=== PATIENT | female | born 1980 | race Caucasian/White ===

== ENCOUNTER 2017-06-02 12:34 | Emergency (ER) | payer BC, OTHER ==
[2017-06-02] MEDS ORDERED: Sodium Chloride 0.9% 10 ML Syringe FLUSH PRN (12:58)
[2017-06-02] MEDS ORDERED: Ketorolac 30 MG/ML SDV IVPUSH ONE (12:58)
[2017-06-02] MEDS ORDERED: Sodium Chloride 0.9% 2.5 ML Syringe FLUSH PRN (12:58)
[2017-06-02] MEDS ORDERED: Sodium Chloride 0.9% 1,000 ML IV ONE (12:59)
--- NOTE | 2017-06-02 13:01 | EDM.PDOC ---
ED HPI GENERAL MEDICAL PROBLEM - General Chief Complaint: Back Pain or Injury Stated Complaint: LOWER BACK PAIN Time Seen by Provider: 06/02/17 12:59 Source of Information: Reports: Patient, RN Notes Reviewed History Limitations: Reports: No Limitations - History of Present Illness INITIAL COMMENTS - FREE TEXT/NARRATIVE: HISTORY AND PHYSICAL: []36-year-old female presenting with lower back pain on the left started about one hour previously while she was sitting at her desk and typing History of Present Illness: []Patient denies any injury Denies any illnesses no cough, fever sore throat No dysuria Review of Systems: As per history of present illness and below otherwise all systems reviewed and negative. Past medical history: As per history of present illness and as reviewed below otherwise noncontributory. Surgical history: As per history of present illness and as reviewed below otherwise noncontributory. Social history: No reported history of drug or alcohol abuse. Family history: As per history of present illness and as reviewed below otherwise noncontributory. Physical exam: Alert and oriented female who answers questions appropriately has done a little bit difficulty standing from sitting position. Nontoxic in appearance. HEENT: Atraumatic, normocehpalic, pupils reactive, negative for conjunctival pallor or scleral icterus, mucous membranes moist, throat clear, neck supple, nontender, trachea midline. Lungs: Clear to auscultation, breath sounds equal bilaterally, chest non tender. Heart: S1S2, regular, negative for clicks, rubs, or JVD. Abdomen: Soft, nondistended, nontender. Negative for masses or hepatossplenmegaly. Positive for costovertebral tenderness on left. Pelvis: Stable nontender. Genitourinary: Deferred. Rectal: Deferred Extremities: Atraumatic, negative for cords or calf pain. Neurovascular unremarkable. Neuro: Awake, alert, oriented. Cranial nerves II through XII unremarkable. Cerebellum unremarkable. Motor and sensory unremarkable throughout. Exam nonfocal. Diagnostics: [CBC CMP quantitative hCG and UA CT abdomen pelvis without ] Therapeutics: [1 L normal saline Toradol IV hydrocodone/APAP 5/325mg 1 po] Impression: [Renal stone] Plan: []Discharged home Prescriptions will be electronically sent to your pharmacy of choice Flomax Mariajoseocchuy See your echo provider in 2-3 days for reevaluation and referral to urology if needed Definitive disposition and diagnosis as appropriate pending reevaluation and review of above. 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: Reports: IV/IO, Other (see below) Other 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: toradol IV left lower back, lower abdomen Pain Score (Numeric/FACES): 8 - Related Data Allergies Allergy/AdvReac Type Severity Reaction Status Date / Time morphine Allergy Severe Lethargy Verified 06/02/17 12:47 Home Meds: Home Meds Escitalopram [Lexapro] 1 tab PO DAILY 05/23/14 [History] Levothyroxine [Synthroid] 1 tab PO ASDIRECTED 05/23/14 [History] Levothyroxine [Synthroid] 1 tab PO ASDIRECTED 05/23/14 [History] Multivitamin [Multi-Vitamin Daily] 1 tab PO DAILY 05/23/14 [History] Amoxicillin PO BID 06/02/17 [History] Tamsulosin [Flomax] 0.4 mg PO ONETIME #30 cap.er 06/02/17 [Rx] Past Medical History Endocrine/Metabolic History: Reports: Hypothyroidism - Infectious Disease History Infectious Disease History: Reports: Chicken Pox, Measles, Mumps Social & Family History - Family History Family Medical History: Noncontributory - Tobacco Use Smoking Status *Q: Current Every Day Smoker Years of Tobacco use: 20 Packs/Tins Daily: 0.5 Second Hand Smoke Exposure: Yes - Caffeine Use Caffeine Use: Reports: None - Alcohol Use Days Per Week of Alcohol Use: 0 Number of Drinks Per Day: 0 Total Drinks Per Week: 0 - Recreational Drug Use Recreational Drug Use: No Drug Use in Last 12 Months: No ED ROS GENERAL - Review of Systems Review Of Systems: ROS reveals no pertinent complaints other than HPI. ED EXAM,LOWER BACK PAIN/INJURY - Physical Exam Exam: See Below (see dictation) Course - Vital Signs Last Recorded V/S: Last Vital Signs Temp 36.7 C 06/02/17 12:43 Pulse Resp 16 06/02/17 12:43 BP 103/63 06/02/17 14:35 Pulse Ox 97 06/02/17 12:43 - Orders/Labs/Meds Orders: Active Orders 24 hr Category Date Time Status Sodium Chloride 0.9% [Saline Flush] Med 06/02/17 12:58 Active 10 ml FLUSH ASDIRECTED PRN Sodium Chloride 0.9% [Saline Flush] Med 06/02/17 12:58 Active 2.5 ml FLUSH ASDIRECTED PRN Saline Lock Insert [OM.PC] Stat Oth 06/02/17 12:58 Ordered Medication Orders Sodium Chloride (Saline Flush) 10 ml FLUSH ASDIRECTED PRN PRN Reason: Keep Vein Open Last Admin: 06/02/17 13:05 Dose: 10 ml Sodium Chloride (Saline Flush) 2.5 ml FLUSH ASDIRECTED PRN PRN Reason: Keep Vein Open Last Admin: 06/02/17 13:05 Dose: 2.5 ml Labs: Laboratory Tests 06/02/17 06/02/17 06/02/17 Range/Units 10:10 13:03 13:03 WBC 11.59 H (4.0-11.0) K/uL RBC 4.24 L (4.30-5.90) M/uL Hgb 13.5 (12.0-16.0) g/dL Hct 40.0 (36.0-46.0) % MCV 94.3 (80.0-98.0) fL MCH 31.8 (27.0-32.0) pg MCHC 33.8 (31.0-37.0) g/dL RDW Std Deviation 44.9 (28.0-62.0) fl RDW Coeff of Omer 13 (11.0-15.0) % Plt Count 271 (150-400) K/uL MPV 9.30 (7.40-12.00) fL Neut % (Auto) 72.2 (48.0-80.0) % Lymph % (Auto) 20.8 (16.0-40.0) % [place] % (Auto) 5.1 (0.0-15.0) % Eos % (Auto) 1.7 (0.0-7.0) % Baso % (Auto) 0.2 (0.0-1.5) % Neut # (Auto) 8.4 H (1.4-5.7) K/uL Lymph # (Auto) 2.4 (0.6-2.4) K/uL [place] # (Auto) 0.6 (0.0-0.8) K/uL Eos # (Auto) 0.2 (0.0-0.7) K/uL Baso # (Auto) 0.0 (0.0-0.1) K/uL Nucleated RBC % 0.0 /100WBC Nucleated RBCs # 0 K/uL Sodium 137 (136-146) mmol/L Potassium 4.3 (3.5-5.1) mmol/L Chloride 107 (98-110) mmol/L Carbon Dioxide 20 L (21-31) mmol/L BUN 13 (6.0-23.0) mg/dL Creatinine 0.8 (0.6-1.5) mg/dL Est Cr Clr Drug Dosing 96.18 mL/min Estimated GFR (MDRD) > 60.0 ml/min Glucose 111 H (60-110) mg/dL Calcium 9.9 (8.8-10.8) mg/dL Total Bilirubin 1.1 (0.1-1.5) mg/dL AST 22 (5-40) IU/L ALT 23 (8-54) IU/L Alkaline Phosphatase 61 (40-150) Total Protein 7.6 (6.0-8.0) g/dL Albumin 4.3 (3.5-5.0) g/dL Globulin 3.3 (2.0-3.5) g/dL Albumin/Globulin Ratio 1.3 (1.3-2.8) HCG, Quant < 1.2 mIU/mL Urine Color YELLOW Urine Appearance CLEAR Urine pH 6.0 (5.0-8.0) Ur Specific [place] 1.025 (1.001-1.035) Urine Protein NEGATIVE (NEGATIVE) mg/dL Urine Glucose (UA) NEGATIVE (NEGATIVE) mg/dL Urine Ketones TRACE H (NEGATIVE) mg/dL Urine Occult Blood SMALL H (NEGATIVE) Urine Nitrite NEGATIVE (NEGATIVE) Urine Bilirubin NEGATIVE (NEGATIVE) Urine Urobilinogen 0.2 (<2.0) EU/dL Ur Leukocyte Esterase NEGATIVE (NEGATIVE) Urine RBC 4-6 (0-2/HPF) Urine WBC 2-5 (0-5/HPF) Ur Epithelial Cells MODERATE (NONE-FEW) Urine Bacteria RARE (NEGATIVE) Urine Mucus LIGHT (NONE-MOD) Meds: Medications Generic Name Dose Route Start Last Admin Trade Name Freq PRN Reason Stop Dose Admin Sodium Chloride 10 ml 06/02/17 12:58 06/02/17 13:05 Saline Flush FLUSH 10 ml ASDIRECTED PRN Administration Keep Vein Open Sodium Chloride 2.5 ml 06/02/17 12:58 06/02/17 13:05 Saline Flush FLUSH 2.5 ml ASDIRECTED PRN Administration Keep Vein Open Discontinued Medications Generic Name Dose Route Start Last Admin Trade Name Jairo PRN Reason Stop Dose Admin Hydrocodone Bitart/Acetaminophen 1 tab 06/02/17 14:13 06/02/17 14:23 [place] 325-5 Mg PO 06/02/17 14:14 1 tab ONETIME ONE Administration Hydromorphone HCl 1 mg 06/02/17 15:02 06/02/17 15:11 Dilaudid IM 06/02/17 15:03 1 mg ONETIME ONE Administration Sodium Chloride 1,000 mls @ 999 mls/hr 06/02/17 12:59 06/02/17 13:04 Normal Saline IV 06/02/17 13:59 999 mls/hr STAT ONE Administration Iopamidol 100 ml 06/02/17 14:34 06/02/17 14:35 Isovue Multipack-370 (76%) IVPUSH 06/02/17 14:35 100 ml ONETIME STA Administration Ketorolac Tromethamine 30 mg 06/02/17 12:58 06/02/17 13:04 Toradol IVPUSH 06/02/17 12:59 30 mg ONETIME ONE Administration Morphine Sulfate 2 mg 06/02/17 14:11 06/02/17 15:11 Morphine IV 06/02/17 14:12 Not Given ONETIME ONE Ondansetron HCl 4 mg 06/02/17 14:11 06/02/17 14:24 Zofran IVPUSH 06/02/17 14:12 4 mg ONETIME ONE Administration Departure - Departure Time of Disposition: 15:42 Disposition: Home, Self-Care 01 Condition: Good Clinical Impression: Renal stone - Discharge Information Prescriptions: Tamsulosin [Flomax] 0.4 mg PO ONETIME #30 cap.er Referrals: PCP,None [Primary Care Provider] - Forms: ED Department Discharge Additional Instructions: The following information is given to patients seen in the emergency department who are being discharged to home. This information is to outline your options for follow-up care. We provide all patients seen in our emergency department with a follow-up referral. The need for follow-up, as well as the timing and circumstances, are variable depending upon the specifics of your emergency department visit. If you don't have a primary care physician on staff, we will provide you with a referral. We always advise you to contact your personal physician following an emergency department visit to inform them of the circumstance of the visit and for follow-up with them and/or the need for any referrals to a consulting specialist. The emergency department will also refer you to a specialist when appropriate. This referral assures that you have the opportunity for followup care with a specialist. All of these measure are taken in an effort to provide you with optimal care, which includes your followup. Under all circumstances we always encourage you to contact your private physician who remains a resource for coordinating your care. When calling for followup care, please make the office aware that this follow-up is from your recent emergency room visit. If for any reason you are refused follow-up, please contact the [facility] emergency department at and asked to speak to the emergency department charge nurse. Prescription has been written for Percocet 10 mg one 3 times daily as needed for pain #21 no refill prescription electronically sent for Flomax 0.4 mg one at the same time daily # 30 no refill Increase fluid intake Strain urine See your primary care provider in the next 2-3 days for reevaluation and reassess need for urology consult Dr. Gill TAVAREZ [facility] - Urology [address] [place] [id number] - My Orders Last 24 Hours: My Active Orders 06/02/17 12:58 Sodium Chloride 0.9% [Saline Flush] 10 ml FLUSH ASDIRECTED PRN Sodium Chloride 0.9% [Saline Flush] 2.5 ml FLUSH ASDIRECTED PRN Saline Lock Insert [OM.PC] Stat - Assessment/Plan Last 24 Hours: My Active Orders 06/02/17 12:58 Sodium Chloride 0.9% [Saline Flush] 10 ml FLUSH ASDIRECTED PRN Sodium Chloride 0.9% [Saline Flush] 2.5 ml FLUSH ASDIRECTED PRN Saline Lock Insert [OM.PC] Stat
[2017-06-02 13:36] LABS: CHLORIDE,CL 107 mmol/L (98-110); SODIUM,NA 137 mmol/L (136-146)
[2017-06-02] MEDS ORDERED: Ondansetron 4 MG/2 ML SDV IVPUSH ONE (14:11)
[2017-06-02] MEDS ORDERED: Acetaminophen/HYDROcodone 325-5 MG Tab PO ONE (14:13)
[2017-06-02] MEDS: Morphine 10 MG/ML Syringe IV ONE ×2 (14:24→15:11)
[2017-06-02] MEDS ORDERED: Iopamidol 755 MG/ML 500 ML Multipack Bottle IVPUSH STA (14:34)
[2017-06-02] MEDS ORDERED: HYDROmorphone 1 MG/ML Syringe IM ONE (15:02)
--- NOTE | 2017-06-02 15:15 | CT ---
CT of the abdomen and pelvis with contrast. HISTORY: Pain TECHNIQUE: Axial CT images were obtained of the abdomen and pelvis following administration of 100 mL of Isovue-370 in the left antecubital fossa without complication. Coronal and sagittal reconstructio ns obtained. FINDINGS: There is a tiny calcified granuloma within the left lung base. No pleural effusion. The liver, spleen, adrenal glands, and pancreas appear normal. The gallbladder appears normal. No bul ky retroperitoneal lymphadenopathy or abdominal ascites. There is a delayed left-sided nephrogram noted with mild to moderate left-sided hydronephrosis. There is a 2 to 3 mm obstructing stone within the distal left ureter. The large and small bowel are normal in caliber without evidence of obstruction. No focal pericolonic inflammation or stranding. The appendix appears normal. No bulky pelvic lymphadenopathy or free pelv ic fluid. No suspicious osseous abnormalities. IMPRESSION: 1. There is a 2 to 3 mm obstructing stone within the distal left ureter with mild to moderate proxima l hydronephrosis.
[2017-06-02 15:59] VITALS: BP 99/57
== END 2017-06-02 16:00 | disposition home or self-care (01) ==
LOC: MW.ED 12:34
DX: N13.2 Hydronephrosis with renal and ureteral calculous obstruction (principal); E03.9 Hypothyroidism, unspecified; F17.210 Nicotine dependence, cigarettes, uncomplicated; Z88.5 Allergy status to narcotic agent; Z79.899 Other long term (current) drug therapy
CPT/HCPCS: 36415; 74177; 80053; 81001; 84702; 85025; 96361; 96374; 96375; 99285; A9270; J1170; J1885; J2405; J7040; Q9967; 99283; J2270

== ENCOUNTER 2020-04-14 10:55 | Day surgery (SDC) | payer OTHER ==
[2020-04-14] MEDS ORDERED: Propofol 200 MG/20 ML SDV ONE (11:07)
[2020-04-14] MEDS ORDERED: fentaNYL 100 MCG/2 ML SDV ONE (11:07)
[2020-04-14] MEDS ORDERED: Midazolam 1 MG/ML 2 ML SDV ONE (11:07)
[2020-04-14] MEDS ORDERED: Ondansetron 4 MG/2 ML SDV ONE (11:08)
[2020-04-14] MEDS ORDERED: Dexamethasone 4 MG/ML 5 ML MDV ONE (11:08)
--- NOTE | 2020-04-14 11:40 | PCM.PREANE ---
Preanesthetic Assessment - Anesthesia/Transfusion/Family Hx Anesthesia History: Prior Anesthesia Without Reaction Other Type of Anesthesia Reaction Comment: Only problem was 'Morphine, cannot have, "I get wild, intensified pain" Family History of Anesthesia Reaction: No Transfusion History: No Prior Transfusion(s) - Review of Systems General: No Symptoms Pulmonary: No Symptoms Cardiovascular: No Symptoms Gastrointestinal: No Symptoms Neurological: No Symptoms Other: Reports: None - Physical Assessment NPO Status Date: 04/13/20 Vital Signs: Last Vital Signs Temp 97.3 F 04/14/20 11:18 Pulse 64 04/14/20 11:18 Resp 16 04/14/20 11:18 BP 86/66 L 04/14/20 11:18 Pulse Ox 100 04/14/20 11:18 Height: 5 ft 8 in Weight: 78.018 kg ASA Class: 2 Mental Status: Alert & Oriented x3 Airway Class: Mallampati = 2 Dentition: Reports: Normal Dentition ROM/Head Extension: Full Lungs: Clear to Auscultation, Normal Respiratory Effort Cardiovascular: Regular Rate, Regular Rhythm - Lab Values: Laboratory Last Values Hgb 13.3 g/dL (12.0-16.0) 04/13/20 09:33 Hct 39.9 % (36.0-46.0) 04/13/20 09:33 HCG, Qual NEGATIVE (NEG) 04/13/20 09:33 - Allergies Allergies/Adverse Reactions: Allergies Allergy/AdvReac Type Severity Reaction Status Date / Time morphine Allergy Severe Lethargy Verified 04/14/20 11:23 - Blood Blood Available: No - Anesthesia Plan Pre-Op Medication Ordered: None - Acknowledgements Anesthesia Type Planned: General Anesthesia (ga/lma) Pt an Appropriate Candidate for the Planned Anesthesia: Yes Alternatives and Risks of Anesthesia Discussed w Pt/Guardian: Yes Pt/Guardian Understands and Agrees with Anesthesia Plan: Yes Additional Comments: PMH: smoker, thyroid replacement, chronic pain syndromes - endometriosis, fibromyalgia, allergy to morphine--sedation then respiratory problems PLANB: GA/LMA PreAnesthesia Questionnaire HEENT History: Reports: Other (See Below) Other HEENT History: wears contacts Cardiovascular History: Reports: Other (See Below) Other Cardiovascular History: murmur as a child Respiratory History: Reports: None Gastrointestinal History: Reports: None Genitourinary History: Reports: Renal Calculus SOUND EFFECTS PERSON History: Reports: Musculoskeletal History: Reports: Fibromyalgia Neurological History: Reports: None Psychiatric History: Reports: None Endocrine/Metabolic History: Reports: Hypothyroidism Other Endocrine/Metabolic History: has not been taking her thyroid medication for over 2 months Hematologic History: Reports: None Immunologic History: Reports: None Oncologic (Cancer) History: Reports: None Dermatologic History: Reports: None - Infectious Disease History Infectious Disease History: Reports: Chicken Pox, Measles, Mumps - Past Surgical History Head Surgeries/Procedures: Reports: None HEENT Surgical History: Reports: None Cardiovascular Surgical History: Reports: None Respiratory Surgical History: Reports: None GI Surgical History: Reports: None Female Surgical History: Reports: Other (See Below) Other Female Surgeries/Procedures: diagnostic laparoscopy Endocrine Surgical History: Reports: None Neurological Surgical History: Reports: None Musculoskeletal Surgical History: Reports: Other (See Below) Other Musculoskeletal Surgeries/Procedures:: upper rib extraction ("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") Oncologic Surgical History: Reports: None Dermatological Surgical History: Reports: None - SUBSTANCE USE Smoking Status *Q: Current Every Day Smoker Tobacco Use Within Last Twelve Months: Cigarettes - HOME MEDS Home Medications: Home Meds Levothyroxine [Synthroid] 1 tab PO ASDIRECTED 05/23/14 [History] Levothyroxine [Synthroid] 1 tab PO ASDIRECTED 05/23/14 [History] Multivitamin [Multi-Vitamin Daily] 1 tab PO DAILY 05/23/14 [History] Cholecalciferol (Vitamin D3) [Vitamin D3] 2,000 units PO DAILY 04/12/20 [History] - CURRENT (IN HOUSE) MEDS Current Meds: Current Medications Discontinued Medications Dexamethasone (Dexamethasone) Confirm Administered Dose 20 mg .ROUTE .STK-MED ONE Stop: 04/14/20 11:09 Fentanyl (Sublimaze) Confirm Administered Dose 100 mcg .ROUTE .STK-MED ONE Stop: 04/14/20 11:08 Lidocaine HCl (Xylocaine-Mpf 1%) Confirm Administered Dose 5 ml .ROUTE .STK-MED ONE Stop: 04/14/20 11:09 Midazolam HCl (Versed 1 Mg/Ml) Confirm Administered Dose 2 mg .ROUTE .STK-MED ONE Stop: 04/14/20 11:08 Ondansetron HCl (Zofran) Confirm Administered Dose 4 mg .ROUTE .STK-MED ONE Stop: 04/14/20 11:09 Propofol (Diprivan 20 Ml) Confirm Administered Dose 200 mg .ROUTE .STK-MED ONE Stop: 04/14/20 11:08
[2020-04-14] MEDS ORDERED: ePHEDrine 50 MG/ML SDV ONE (11:44)
[2020-04-14] MEDS ORDERED: Glycopyrrolate 0.2 MG/ML SDV ONE (12:06)
[2020-04-14] MEDS ORDERED: fentaNYL 100 MCG/2 ML SDV IVPUSH PRN (12:14)
--- NOTE | 2020-04-14 12:30 | PCM.OPNOTE ---
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
--- NOTE | 2020-04-14 12:45 | PCM.POSTAN ---
POST ANESTHESIA ASSESSMENT - MENTAL STATUS Mental Status: Alert, Oriented - VITAL SIGNS Vital Signs: Last Vital Signs Temp 36.6 C 04/14/20 12:22 Pulse 104 H 04/14/20 12:42 Resp 17 04/14/20 12:42 BP 112/71 04/14/20 12:42 Pulse Ox 99 04/14/20 12:42 - RESPIRATORY Respiratory Status: Respiratory Rate WNL, Airway Patent, O2 Saturation Stable - CARDIOVASCULAR CV Status: Pulse Rate WNL, Blood Pressure Stable - GASTROINTESTINAL GI Status: No Symptoms - POST OP HYDRATION Hydration Status: Adequate & Stable
--- NOTE | 2020-04-14 12:55 | PCM48HPAN ---
Post Anesthesia Note - EVALUATION WITHIN 48HRS OF ANESTHETIC Vital Signs in Normal Range: Yes Patient Participated in Evaluation: Yes Respiratory Function Stable: Yes Airway Patent: Yes Cardiovascular Function Stable: Yes Hydration Status Stable: Yes Pain Control Satisfactory: Yes Nausea and Vomiting Control Satisfactory: Yes Mental Status Recovered: Yes Vital Signs: Last Vital Signs Temp 97.9 F 04/14/20 12:22 Pulse 104 H 04/14/20 12:42 Resp 17 04/14/20 12:42 BP 112/71 04/14/20 12:42 Pulse Ox 99 04/14/20 12:42
[2020-04-14 13:34] VITALS: BP 101/57; PULSE 69
--- NOTE | 2020-04-14 15:59 | OR ---
SURGEON: Meaghan Qiu M.D. DATE OF PROCEDURE: 04/14/2020 PREOPERATIVE DIAGNOSES: Low-grade squamous intraepithelial lesion Pap, moderate cervical dysplasia on biopsy. POSTOPERATIVE DIAGNOSES: Low-grade squamous intraepithelial lesion Pap, moderate cervical dysplasia on biopsy. PROCEDURE: Loop electrode excisional procedure. PRIMARY SURGEON: Meaghan Qiu MD TAX SENIOR ASSOCIATE: ABBY Whitfield ANESTHESIA: Cervical block with LMA. ESTIMATED BLOOD LOSS: 5 mL. INTRAOPERATIVE FLUID REPLACEMENT: 800 mL. PATHOLOGY SPECIMENS: Ectocervix open at 12 o'clock and endocervical curettings. COMPLICATIONS: None known. DISPOSITION: Stable to Recovery. BRIEF HISTORY: This is a 39-year-old female. She had a low-grade JOVITA Pap, positive HPV, with moderate cervical dysplasia on biopsy. Was recommended to proceed with intervention, and she agrees to proceed with a loop electrode excisional procedure with risks discussed including bleeding, infection, and risk of cervical incompetence if she were to become in the future. Understanding these risks, she does desire to proceed. DESCRIPTION OF PROCEDURE: With the patient in dorsal lithotomy position, under LMA analgesia, a speculum was placed in the vagina. The cervix was visualized with a colposcope under high and low power. GreenLight was utilized and acetic acid was applied. There was a small area of acetowhite epithelium at 10 o'clock as well as HPV changes at 3 o'clock. Lugol's solution was then applied. The nonstaining area was identified. An apple LEEP loop was utilized starting at the 12 o'clock position and proceeding in a clockwise manner. The ectocervix was excised under pure cut 40 marcus of power. This was sent for pathology. Sharp curettage of the endocervix was then performed and collected with a Cytobrush and sent as a separate specimen. The base of the LEEP bed was then cauterized using a ball- tip cautery, pure coag, setting of 60, followed by Monsel's solution. The cervix was completely hemostatic. The instruments were removed from the vagina. Final sponge, needle, and instrument counts were reported as correct. There were no known complications. The patient was transferred to Recovery in good condition. KIMBERLY / MIGUEL /[id number]
== END 2020-04-14 14:02 | disposition home or self-care (01) ==
LOC: MW.SDS 10:55
PROVIDERS: ATTEND Obstetrics & Gynecology
DX: N87.1 Moderate cervical dysplasia (principal); N87.0 Mild cervical dysplasia; E03.9 Hypothyroidism, unspecified; M79.7 Fibromyalgia; F17.210 Nicotine dependence, cigarettes, uncomplicated; Z88.5 Allergy status to narcotic agent; Z79.890 Hormone replacement therapy
CPT/HCPCS: 36415; 57461; 84703; 85014; 85018; J1100; J2001; J2250; J2405; J2704; J3490; 88305; 88307; J3010

== ENCOUNTER 2020-08-18 09:14 | Emergency (ER) | payer OTHER ==
[2020-08-18] MEDS ORDERED: Sodium Chloride 0.9% 2.5 ML Syringe FLUSH PRN (09:47)
[2020-08-18] MEDS ORDERED: Sodium Chloride 0.9% 1,000 ML IV ONE (09:47)
[2020-08-18] MEDS ORDERED: Sodium Chloride 0.9% 10 ML Syringe FLUSH PRN (09:47)
--- NOTE | 2020-08-18 09:47 | EDM.PDOC ---
ED HPI GENERAL MEDICAL PROBLEM - General Chief Complaint: General Stated Complaint: DIZZY VISION ISSUES Time Seen by Provider: 08/18/20 09:24 Source of Information: Reports: Patient History Limitations: Reports: No Limitations - History of Present Illness INITIAL COMMENTS - FREE TEXT/NARRATIVE: 40-year-old female past medical history fibromyalgia presents for 2 weeks of multiple complaints. Patient notes that starting a couple of weeks ago she woke up feeling dizzy, nauseated, generalized weakness. She noted that she had difficulty walking and had to sit down for several minutes in order to regain her strength. She noted tingling in her thumbs and pain shooting through bilateral lower extremities. A few days later she had a repeat episode, felt very slow when she was walking, had difficulty opening bottle of Gatorade secondary to generalized weakness, hands and fingers felt stiff and curled up. She also felt very dizzy during this episode with whole body twitches and stiffness of her fingers and hands. Yesterday she woke up feeling similar although symptoms subsided by the evening. She is noted mild swelling in bilateral upper and lower extremities. She denies fevers, cough, shortness of breath, chest pain. She notes mild headache. She did see her primary care physician last week for the symptoms and had blood work done revealing mild transaminitis. Patient notes that she has a history of mild transaminitis when she has not feeling well. She states that it has never been fully explained. 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 Regarding generalized weakness, patient does note that her right side has felt more weak than the left x1-week, although both sides feel weak to her. - Related Data Allergies Allergy/AdvReac Type Severity Reaction Status Date / Time morphine Allergy Severe Lethargy Verified 08/18/20 09:23 Home Meds: Home Meds Citalopram [Citalopram HBr] 20 mg PO DAILY 08/18/20 [History] Ergocalciferol (Vitamin D2) [Vitamin D2] 1.25 mg PO ASDIRECTED 08/18/20 [History] Thyroid,Pork [Rumely Thyroid] 1 gm PO DAILY 08/18/20 [History] medroxyPROGESTERone [Depo-Provera Contraceptive] 1 dose SQ ASDIRECTED 08/18/20 [History] Past Medical History HEENT History: Reports: Other (See Below) Other HEENT History: wears contacts Cardiovascular History: Reports: Other (See Below) Other Cardiovascular History: murmur as a child Respiratory History: Reports: None Gastrointestinal History: Reports: None Genitourinary History: Reports: Renal Calculus 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: Musculoskeletal History: Reports: Fibromyalgia Neurological History: Reports: None Psychiatric History: Reports: None Endocrine/Metabolic History: Reports: Hypothyroidism Other Endocrine/Metabolic History: has not been taking her thyroid medication for over 2 months Hematologic History: Reports: None Immunologic History: Reports: None Oncologic (Cancer) History: Reports: None Dermatologic History: Reports: None - Infectious Disease History Infectious Disease History: Reports: Chicken Pox, Measles, Mumps - Past Surgical History Head Surgeries/Procedures: Reports: None HEENT Surgical History: Reports: None Cardiovascular Surgical History: Reports: None Respiratory Surgical History: Reports: None GI Surgical History: Reports: None Female Surgical History: Reports: Other (See Below) Other Female Surgeries/Procedures: diagnostic laparoscopy Endocrine Surgical History: Reports: None Neurological Surgical History: Reports: None Musculoskeletal Surgical History: Reports: Other (See Below) Other Musculoskeletal Surgeries/Procedures:: upper rib extraction ("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 ED EXAM, GENERAL - Physical Exam Exam: See Below Exam Limited By: No Limitations General Appearance: Alert, WD/WN, No Apparent Distress Eye Exam: Bilateral Eye: EOMI, PERRL Ears: Normal External Exam Nose: Normal Inspection Throat/Mouth: Normal Inspection, Normal Voice, No Airway Compromise Head: Atraumatic, Normocephalic Neck: Normal Inspection, Supple, Full Range of Motion Respiratory/Chest: No Respiratory Distress, Lungs Clear, Normal Breath Sounds, No Accessory Muscle Use Cardiovascular: Normal Peripheral Pulses, Regular Rate, Rhythm, No Edema GI/Abdominal: Soft, Non-Tender Extremities: Normal Inspection, Non-Tender. No: Pedal Edema Neurological: Alert, Oriented, CN II-XII Intact, Normal Cognition, Normal Gait, No Motor/Sensory Deficits Psychiatric: Normal Affect, Normal Mood Skin Exam: Warm, Dry, Intact, Normal Color #1 Interpretation EKG Date: 08/18/20 Time: 09:30 Rhythm: NSR Rate (Beats/Min): 82 [place]: Normal P-Wave: Present QRS: Normal ST-T: Normal QT: Normal KY/PQ Interval: 132 EKG Interpretation Comments: normal EKG without acute ischemic changes Course - Vital Signs Last Recorded V/S: Last Vital Signs Temp 98.8 F 08/18/20 09:24 Pulse 65 08/18/20 11:26 Resp 15 08/18/20 11:26 BP 94/63 08/18/20 11:26 Pulse Ox 99 08/18/20 11:26 - Orders/Labs/Meds Orders: Active Orders 24 hr Category Date Time Status Cardiac Monitoring [RC] . DIRECTED Care 08/18/20 09:47 Active EKG Documentation Completion [RC] STAT Care 08/18/20 09:47 Active Ang Head [CT] Stat Exams 08/18/20 10:09 Taken CTA Neck W & W/O Contrast [Ang Neck] [CT] Stat Exams 08/18/20 10:09 Taken PROCALCITONIN [REF] Stat Lab 08/18/20 09:31 Received Sodium Chloride 0.9% [Saline Flush] Med 08/18/20 09:47 Active 10 ml FLUSH ASDIRECTED PRN Sodium Chloride 0.9% [Saline Flush] Med 08/18/20 09:47 Active 2.5 ml FLUSH ASDIRECTED PRN Saline Lock Insert [OM.PC] Stat Oth 08/18/20 09:47 Ordered Medication Orders Sodium Chloride (Saline Flush) 10 ml FLUSH ASDIRECTED PRN PRN Reason: Keep Vein Open Last Admin: 08/18/20 09:53 Dose: 10 ml Documented by: DEBBY Sodium Chloride (Saline Flush) 2.5 ml FLUSH ASDIRECTED PRN PRN Reason: Keep Vein Open Last Admin: 08/18/20 09:53 Dose: 2.5 ml Documented by: DEBBY Labs: Laboratory Tests 08/18/20 08/18/20 08/18/20 Range/Units 09:31 09:31 09:31 WBC 8.96 (4.0-11.0) K/uL RBC 4.53 (4.30-5.90) M/uL Hgb 14.1 (12.0-16.0) g/dL Hct 43.2 (36.0-46.0) % MCV 95.4 (80.0-98.0) fL MCH 31.1 (27.0-32.0) pg MCHC 32.6 (31.0-37.0) g/dL RDW Std Deviation 45.9 (28.0-62.0) fl RDW Coeff of Omer 13 (11.0-15.0) % Plt Count 281 (150-400) K/uL MPV 9.50 (7.40-12.00) fL Neut % (Auto) 57.5 (48.0-80.0) % Lymph % (Auto) 31.8 (16.0-40.0) % [place] % (Auto) 8.9 (0.0-15.0) % Eos % (Auto) 1.6 (0.0-7.0) % Baso % (Auto) 0.2 (0.0-1.5) % Neut # (Auto) 5.2 (1.4-5.7) K/uL Lymph # (Auto) 2.9 H (0.6-2.4) K/uL [place] # (Auto) 0.8 (0.0-0.8) K/uL Eos # (Auto) 0.1 (0.0-0.7) K/uL Baso # (Auto) 0.0 (0.0-0.1) K/uL Nucleated RBC % 0.0 /100WBC Nucleated RBCs # 0 K/uL INR APTT (18.6-31.3) SEC Lactate 0.7 (0.20-2.00) mmol/L Sodium 137 (136-145) mmol/L Potassium 3.6 (3.5-5.1) mmol/L Chloride 104 (98-107) mmol/L Carbon Dioxide 22.7 (21.0-32.0) mmol/L BUN 13 (7.0-18.0) mg/dL Creatinine 0.8 (0.6-1.0) mg/dL Est Cr Clr Drug Dosing 92.41 mL/min Estimated GFR (MDRD) > 60.0 ml/min Glucose 96 (74-106) mg/dL Calcium 9.0 (8.5-10.1) mg/dL Magnesium 2.2 (1.8-2.4) mg/dL Total Bilirubin 1.0 (0.2-1.0) mg/dL AST 21 (15-37) IU/L ALT 29 (14-63) IU/L Alkaline Phosphatase 62 (46-116) U/L Troponin I < 0.050 (0.000-0.056) ng/mL C-Reactive Protein < 0.20 (0.00-0.90) mg/dL B-Natriuretic Peptide (<100) PG/ML Total Protein 8.3 H (6.4-8.2) g/dL Albumin 4.3 (3.4-5.0) g/dL Globulin 4.0 (2.6-4.0) g/dL Albumin/Globulin Ratio 1.1 (0.9-1.6) TSH 3rd Generation 1.49 (0.36-3.74) uIU/mL Urine Color Urine Appearance Urine pH (5.0-8.0) Ur Specific Jameson (1.001-1.035) Urine Protein (NEGATIVE) mg/dL Urine Glucose (UA) (NEGATIVE) mg/dL Urine Ketones (NEGATIVE) mg/dL Urine Occult Blood (NEGATIVE) Urine Nitrite (NEGATIVE) Urine Bilirubin (NEGATIVE) Urine Urobilinogen (<2.0) EU/dL Ur Leukocyte Esterase (NEGATIVE) Urine HCG, Qual (NEGATIVE) SARS-CoV-2 RNA (KENNY) (NEGATIVE) 08/18/20 08/18/20 08/18/20 Range/Units 09:31 09:31 10:55 WBC (4.0-11.0) K/uL RBC (4.30-5.90) M/uL Hgb (12.0-16.0) g/dL Hct (36.0-46.0) % MCV (80.0-98.0) fL MCH (27.0-32.0) pg MCHC (31.0-37.0) g/dL RDW Std Deviation (28.0-62.0) fl RDW Coeff of Omer (11.0-15.0) % Plt Count (150-400) K/uL MPV (7.40-12.00) fL Neut % (Auto) (48.0-80.0) % Lymph % (Auto) (16.0-40.0) % [place] % (Auto) (0.0-15.0) % Eos % (Auto) (0.0-7.0) % Baso % (Auto) (0.0-1.5) % Neut # (Auto) (1.4-5.7) K/uL Lymph # (Auto) (0.6-2.4) K/uL [place] # (Auto) (0.0-0.8) K/uL Eos # (Auto) (0.0-0.7) K/uL Baso # (Auto) (0.0-0.1) K/uL Nucleated RBC % /100WBC Nucleated RBCs # K/uL INR 1.05 APTT 27.1 (18.6-31.3) SEC Lactate (0.20-2.00) mmol/L Sodium (136-145) mmol/L Potassium (3.5-5.1) mmol/L Chloride (98-107) mmol/L Carbon Dioxide (21.0-32.0) mmol/L BUN (7.0-18.0) mg/dL Creatinine (0.6-1.0) mg/dL Est Cr Clr Drug Dosing mL/min Estimated GFR (MDRD) ml/min Glucose (74-106) mg/dL Calcium (8.5-10.1) mg/dL Magnesium (1.8-2.4) mg/dL Total Bilirubin (0.2-1.0) mg/dL AST (15-37) IU/L ALT (14-63) IU/L Alkaline Phosphatase (46-116) U/L Troponin I (0.000-0.056) ng/mL C-Reactive Protein (0.00-0.90) mg/dL B-Natriuretic Peptide 35 (<100) PG/ML Total Protein (6.4-8.2) g/dL Albumin (3.4-5.0) g/dL Globulin (2.6-4.0) g/dL Albumin/Globulin Ratio (0.9-1.6) TSH 3rd Generation (0.36-3.74) uIU/mL Urine Color YELLOW Urine Appearance CLEAR Urine pH 5.5 (5.0-8.0) Ur Specific Jameson 1.010 (1.001-1.035) Urine Protein NEGATIVE (NEGATIVE) mg/dL Urine Glucose (UA) NEGATIVE (NEGATIVE) mg/dL Urine Ketones NEGATIVE (NEGATIVE) mg/dL Urine Occult Blood NEGATIVE (NEGATIVE) Urine Nitrite NEGATIVE (NEGATIVE) Urine Bilirubin NEGATIVE (NEGATIVE) Urine Urobilinogen 0.2 (<2.0) EU/dL Ur Leukocyte Esterase NEGATIVE (NEGATIVE) Urine HCG, Qual (NEGATIVE) SARS-CoV-2 RNA (KENNY) (NEGATIVE) 08/18/20 08/18/20 Range/Units 10:55 10:58 WBC (4.0-11.0) K/uL RBC (4.30-5.90) M/uL Hgb (12.0-16.0) g/dL Hct (36.0-46.0) % MCV (80.0-98.0) fL MCH (27.0-32.0) pg MCHC (31.0-37.0) g/dL RDW Std Deviation (28.0-62.0) fl RDW Coeff of Omer (11.0-15.0) % Plt Count (150-400) K/uL MPV (7.40-12.00) fL Neut % (Auto) (48.0-80.0) % Lymph % (Auto) (16.0-40.0) % [place] % (Auto) (0.0-15.0) % Eos % (Auto) (0.0-7.0) % Baso % (Auto) (0.0-1.5) % Neut # (Auto) (1.4-5.7) K/uL Lymph # (Auto) (0.6-2.4) K/uL [place] # (Auto) (0.0-0.8) K/uL Eos # (Auto) (0.0-0.7) K/uL Baso # (Auto) (0.0-0.1) K/uL Nucleated RBC % /100WBC Nucleated RBCs # K/uL INR APTT (18.6-31.3) SEC Lactate (0.20-2.00) mmol/L Sodium (136-145) mmol/L Potassium (3.5-5.1) mmol/L Chloride (98-107) mmol/L Carbon Dioxide (21.0-32.0) mmol/L BUN (7.0-18.0) mg/dL Creatinine (0.6-1.0) mg/dL Est Cr Clr Drug Dosing mL/min Estimated GFR (MDRD) ml/min Glucose (74-106) mg/dL Calcium (8.5-10.1) mg/dL Magnesium (1.8-2.4) mg/dL Total Bilirubin (0.2-1.0) mg/dL AST (15-37) IU/L ALT (14-63) IU/L Alkaline Phosphatase (46-116) U/L Troponin I (0.000-0.056) ng/mL C-Reactive Protein (0.00-0.90) mg/dL B-Natriuretic Peptide (<100) PG/ML Total Protein (6.4-8.2) g/dL Albumin (3.4-5.0) g/dL Globulin (2.6-4.0) g/dL Albumin/Globulin Ratio (0.9-1.6) TSH 3rd Generation (0.36-3.74) uIU/mL Urine Color Urine Appearance Urine pH (5.0-8.0) Ur Specific Jameson (1.001-1.035) Urine Protein (NEGATIVE) mg/dL Urine Glucose (UA) (NEGATIVE) mg/dL Urine Ketones (NEGATIVE) mg/dL Urine Occult Blood (NEGATIVE) Urine Nitrite (NEGATIVE) Urine Bilirubin (NEGATIVE) Urine Urobilinogen (<2.0) EU/dL Ur Leukocyte Esterase (NEGATIVE) Urine HCG, Qual NEGATIVE (NEGATIVE) SARS-CoV-2 RNA (KENNY) NEGATIVE (NEGATIVE) Meds: Medications Generic Name Dose Route Start Last Admin Trade Name Freq PRN Reason Stop Dose Admin Sodium Chloride 10 ml 08/18/20 09:47 08/18/20 09:53 Saline Flush FLUSH 10 ml ASDIRECTED PRN Administration Keep Vein Open Sodium Chloride 2.5 ml 08/18/20 09:47 08/18/20 09:53 Saline Flush FLUSH 2.5 ml ASDIRECTED PRN Administration Keep Vein Open Discontinued Medications Generic Name Dose Route Start Last Admin Trade Name Freq PRN Reason Stop Dose Admin Sodium Chloride 1,000 mls @ 999 mls/hr 08/18/20 09:47 08/18/20 09:52 Normal Saline IV 12/11/20 10:47 999 mls/hr .Bolus ONE Administration Iopamidol 100 ml 08/18/20 13:12 08/18/20 13:14 Isovue Multipack-370 (76%) IVPUSH 08/18/20 13:13 100 ml ONETIME STA Administration - Re-Assessments/Exams Free Text/Narrative Re-Assessment/Exam: 08/18/20 09:46 Considering the nonspecific nature of patient's multiple complaints, will start broad work-up. We will follow up results and disposition accordingly. 08/18/20 13:51 Ct imaging of head and labs are all unremarkable. CTA head/neck are pending. Will d/c patient with PMD f/u Departure - Departure Time of Disposition: 13:51 Disposition: Home, Self-Care 01 Condition: Good Clinical Impression: Generalized weakness - Discharge Information Instructions: Fatigue Referrals: Ventura Oates MD [Primary Care Provider] - Forms: ED Department Discharge Additional Instructions: Your work-up was unremarkable. You should follow-up with your primary care physician. The following information is given to patients seen in the emergency department who are being discharged to home. This information is to outline your options for follow-up care. We provide all patients seen in our emergency department with a follow-up referral. The need for follow-up, as well as the timing and circumstances, are variable depending upon the specifics of your emergency department visit. If you don't have a primary care physician on staff, we will provide you with a referral. We always advise you to contact your personal physician following an emergency department visit to inform them of the circumstance of the visit and for follow-up with them and/or the need for any referrals to a consulting specialist. The emergency department will also refer you to a specialist when appropriate. This referral assures that you have the opportunity for follow-up care with a specialist. All of these measure are taken in an effort to provide you with optimal care, which includes your follow-up. Under all circumstances we always encourage you to contact your private physician who remains a resource for coordinating your care. When calling for follow-up care, please make the office aware that this follow-up is from your recent emergency room visit. If for any reason you are refused follow-up, please contact the [facility] Emergency Department at and asked to speak to the emergency department charge nurse. Please follow up with your primary care physician. If you do not have a primary care physician, see below: [facility] [address] [place] [address] [facility] [address] [place], [place] [id number] Sepsis Event Note (ED) - Evaluation Sepsis Screening Result: No Definite Risk - Focused Exam Vital Signs: Vital Signs Temp Pulse Resp BP Pulse Ox 08/18/20 11:26 65 15 94/63 99 08/18/20 11:01 76 15 103/68 100 08/18/20 10:26 57 L 16 101/64 100 08/18/20 09:24 98.8 F 82 18 123/61 99 - My Orders Last 24 Hours: My Active Orders 08/18/20 09:31 PROCALCITONIN [REF] Stat 08/18/20 09:47 Cardiac Monitoring [RC] . DIRECTED EKG Documentation Completion [RC] STAT Sodium Chloride 0.9% [Saline Flush] 10 ml FLUSH ASDIRECTED PRN Sodium Chloride 0.9% [Saline Flush] 2.5 ml FLUSH ASDIRECTED PRN Saline Lock Insert [OM.PC] Stat 08/18/20 10:09 Ang Head [CT] Stat CTA Neck W & W/O Contrast [Ang Neck] [CT] Stat - Assessment/Plan Last 24 Hours: My Active Orders 08/18/20 09:31 PROCALCITONIN [REF] Stat 08/18/20 09:47 Cardiac Monitoring [RC] . DIRECTED EKG Documentation Completion [RC] STAT Sodium Chloride 0.9% [Saline Flush] 10 ml FLUSH ASDIRECTED PRN Sodium Chloride 0.9% [Saline Flush] 2.5 ml FLUSH ASDIRECTED PRN Saline Lock Insert [OM.PC] Stat 08/18/20 10:09 Ang Head [CT] Stat CTA Neck W & W/O Contrast [Ang Neck] [CT] Stat
[2020-08-18 10:11] LABS: BLOOD UREA NITROGEN,BUN 13 mg/dL (7.0-18.0); CARBON DIOXIDE,CO2 22.7 mmol/L (21.0-32.0); CHLORIDE,CL 104 mmol/L (98-107); GLUCOSE RANDOM 96 mg/dL (74-106); POTASSIUM,K 3.6 mmol/L (3.5-5.1); SODIUM,NA 137 mmol/L (136-145)
--- NOTE | 2020-08-18 10:27 | CR ---
INDICATION: Generalized weakness and palpitations. COMPARISON: None TECHNIQUE: Single-view chest radiograph obtained portably FINDINGS: TUBES AND LINES: None. HEART AND MEDIASTINUM: The heart size is normal. The mediastinal contour appears normal for patient age. LUNGS AND PLEURAL SPACES: The lungs appear normal.The pleural spaces are unremarkable. OSSEOUS STRUCTURES: Age-appropriate appearance. No acute focal finding. IMPRESSION: No evidence of active pulmonary disease. Dictated by Jesse Crespo MD @ Aug 18 2020 10:25AM Signed by Dr. Jesse Crespo @ Aug 18 2020 10:25AM
[2020-08-18] MEDS ORDERED: Iopamidol 755 MG/ML 500 ML Multipack Bottle IVPUSH STA (13:12)
--- NOTE | 2020-08-18 13:25 | CT ---
INDICATION: Dizziness COMPARISON: None TECHNIQUE: CT examination of the head was performed as axial sections without intravenous contrast. Images were obtained from the vertex of the skull through the skull base. Please note that all CT scans at this facility use dose modulation, iterative reconstruction, and/or weight-based dosing when appropriate to reduce radiation dose to as low as reasonably achievable. FINDINGS: The brain shows no sign of mass lesion, mass effect, hemorrhage, or edema. The ventricles and sulci are normal in appearance for the patient`s age. The visualized portions of the orbits are normal in appearance. The osseous structures are normal in their appearance with no sign of abnormality in the skull base or calvarium. IMPRESSION: Normal unenhanced head CT. Please note that all CT scans at this facility use dose modulation, iterative reconstruction, and/or weight-based dosing when appropriate to reduce radiation dose to as low as reasonably achievable. Dictated by Jesse Crespo MD @ Aug 18 2020 1:21PM Signed by Dr. Jesse Crespo @ Aug 18 2020 1:25PM
--- NOTE | 2020-08-18 13:53 | CT ---
INDICATION: Dizziness. TECHNIQUE: After standard noncontrast head CT, high resolution axial CT images acquired through the head and neck following rapid intravenous administration of iodinated contrast. Multiplanar MIPS of cranial and cervical vasculature performed. FINDINGS: Noncontrast head CT: There is no intracranial hemorrhage or fluid collection. The vega-white matter differentiation is maintained. The ventricles are of normal morphology. The basal cisterns are clear. CTA head and neck: The study is limited due to missed timing of the contrast bolus, limiting arterial opacification. Grossly, no obvious large vessel occlusion is noted. There is no carotid or vertebral artery stenosis or dissection. IMPRESSION: No acute intracranial abnormality on noncontrast CT. CTA head limited due to poor arterial opacification, though no obvious large vessel occlusion noted. No carotid or vertebral stenosis or dissection. Tomasz Fernandez MD Neurointerventional Radiologist [employer] Please note that all CT scans at this facility use dose modulation, iterative reconstruction, and/or weight-based dosing when appropriate to reduce radiation dose to as low as reasonably achievable. Dictated by Tomasz Fernandez MD @ Aug 18 2020 1:52PM Signed by Dr. Tomasz Fernandez @ Aug 18 2020 4:22PM
[2020-08-18 15:01] VITALS: BP 102/71; PULSE 76
== END 2020-08-18 14:32 | disposition home or self-care (01) ==
LOC: MW.ED 09:14
DX: R53.1 Weakness (principal); Z88.5 Allergy status to narcotic agent; E03.9 Hypothyroidism, unspecified; Z79.899 Other long term (current) drug therapy; Z20.828 Contact with and (suspected) exposure to other viral communicable diseases
CPT/HCPCS: 36415; 70450; 70496; 70498; 71045; 80053; 81003; 81025; 83605; 83735; 83880; 84145; 84443; 84484; 85025; 85610; 85730; 86140; 87635; 93005; 99285; J7030; Q9967; 93010; 99284; U0002

== ENCOUNTER 2020-12-19 10:12 | Emergency (ER) | payer BC ==
--- NOTE | 2020-12-19 10:25 | PCM.EKG ---
#1 Interpretation EKG Date: 12/19/20 Time: 10:17 Rhythm: NSR Rate (Beats/Min): 81 ST-T: Normal
[2020-12-19] MEDS ORDERED: Sodium Chloride 0.9% 10 ML Syringe FLUSH PRN (10:28)
[2020-12-19] MEDS ORDERED: Sodium Chloride 0.9% 1,000 ML IV ONE (10:28)
[2020-12-19] MEDS ORDERED: Sodium Chloride 0.9% 2.5 ML Syringe FLUSH PRN (10:28)
[2020-12-19] MEDS ORDERED: Aspirin 81 MG Tab.Chew PO ONE (10:28)
--- NOTE | 2020-12-19 11:04 | EDM.PDOC ---
ED HPI GENERAL MEDICAL PROBLEM - General Chief Complaint: Chest Pain Stated Complaint: CHEST PAIN Time Seen by Provider: 12/19/20 10:19 Source of Information: Reports: Patient History Limitations: Reports: No Limitations - History of Present Illness INITIAL COMMENTS - FREE TEXT/NARRATIVE: HISTORY AND PHYSICAL: History of present illness: Patient is a 40-year-old female who presents to the ED today with concern of chest pain that began at 445 this morning. Patient states that the chest pain has been coming and going and currently she is not having chest pain. Patient states that the chest pain radiates to her back and causes a tingling sensation in her bilateral hands. Patient states she is not currently having this sensation. Patient states that she is in the process of evaluation and is currently wearing a Zio-Holter monitor patch as she has been having issues with palpitations. She states that she is following with Dr. Hyatt and Dr. Vicente and is in the process of getting a tilt table test for concern of possible ADEN disease. Patient states when she is having the chest pain she does feel slightly dizzy. Patient states she has not taken anything for her symptoms. Patient states she has a history of fibromyalgia but denies any other health history. Patient denies fever, chills, shortness of breath, or cough. Denies headache, neck stiff ness, change in vision, syncope, or near syncope. Denies nausea, vomiting, abdominal pain, diarrhea, constipation, or dysuria. Has not noted any blood in urine or stool. Patient has been eating and drinking appropriately. Review of systems: As per history of present illness and below otherwise all systems reviewed and negative. Past medical history: As per history of present illness and as reviewed below otherwise noncontributory. Surgical history: As per history of present illness and as reviewed below otherwise noncontributory. Social history: See social history for further information Family history: As per history of present illness and as reviewed below otherwise noncontributory. Physical exam: General: Patient is alert, oriented, and in no acute distress. Patient sitting comfortably on exam table. Vitals stable and reviewed by me. HEENT: Atraumatic, normocephalic, pupils equal and reactive bilaterally, negative for conjunctival pallor or scleral icterus, mucous membranes moist, TMs normal bilaterally, throat clear, neck supple, nontender, trachea midline. No drooling or trismus noted. No meningeal signs. No hot potato voice noted. Lungs: Clear to auscultation, breath sounds equal bilaterally, chest nontender. Heart: S1S2, regular rate and rhythm without overt murmur Abdomen: Soft, nondistended, nontender. Negative for masses or hepatosplenomegaly. Negative for costovertebral tenderness. Pelvis: Stable nontender. Genitourinary: Deferred. Rectal: Deferred. Skin: Intact, warm, dry. No lesions or rashes noted. Extremities: Atraumatic, negative for cords or calf pain. Neurovascular unremarkable. Neuro: Awake, alert, oriented. Cranial nerves II through XII unremarkable. Cerebellum unremarkable. Motor and sensory unremarkable throughout. Exam nonfocal. Notes: On initial exam, patient is vitally stable and well-appearing. Nontoxic on exam. She is currently chest pain-free not having any symptoms at this time with her last episode of chest pain just before coming to the emergency room. We will perform routine lab work as well as cardiac evaluation. See Dr. Rodriguez's dictation for specific EKG interpretation. Otherwise, no STEMI, regular sinus rhythm. CBC unremarkable. CMP noted for mild elevation in bilirubin, will add on RUQ US to assess the gallbladder / CBD. hcg negative. Initial troponin is negative. Patient remains chest pain free at this time. HEART Score 2--low risk. CXR shows no acute cardiopulmonary findings. RUQ ultrasound shows unremarkable right upper quadrant ultrasound with no sign of biliary dilation or other explanation for elevated bilirubin. Repeat delta Trop is negative. Admission for observation was offered to patient but she declines at this time. All risks vs benefits discussed with patient and expresses understanding. Strict return precautions thoroughly discussed with patient. Discussed importance for follow-up with a basket patcher and her primary care provider. Voices understanding and is agreeable to plan of care. Denies any further questions or concerns at this time. Diagnostics: EKG, CBC, CMP, UA, Serum hcg, lipase, Trop x 2, CXR, orthostatic vitals Therapeutics: NS, ASA Prescription: None Impression: Atypical chest pain Plan: 1. You can alternate ibuprofen and Tylenol as directed for pain and discomfort. 2. Follow-up with your primary care provider and the basket patcher as discussed. Return to the ED as needed and as discussed. Definitive disposition and diagnosis as appropriate pending reevaluation and review of above. Chest Pain Score (Numeric/FACES): 7 - Related Data Allergies Allergy/AdvReac Type Severity Reaction Status Date / Time morphine Allergy Severe Lethargy Verified 12/19/20 10:23 Home Meds: Home Meds Citalopram [Citalopram HBr] 20 mg PO DAILY 08/18/20 [History] Ergocalciferol (Vitamin D2) [Vitamin D2] 1.25 mg PO ASDIRECTED 08/18/20 [History] Thyroid,Pork [[place] Thyroid] 1 gm PO DAILY 08/18/20 [History] medroxyPROGESTERone [Depo-Provera Contraceptive] 1 dose SQ ASDIRECTED 08/18/20 [History] Past Medical History HEENT History: Reports: Other (See Below) Other HEENT History: wears contacts Cardiovascular History: Reports: Other (See Below) Other Cardiovascular History: murmur as a child Respiratory History: Reports: None Gastrointestinal History: Reports: None Genitourinary History: Reports: Renal Calculus 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: Musculoskeletal History: Reports: Fibromyalgia Neurological History: Reports: None Psychiatric History: Reports: None Endocrine/Metabolic History: Reports: Hypothyroidism Other Endocrine/Metabolic History: has not been taking her thyroid medication for over 2 months Hematologic History: Reports: None Immunologic History: Reports: None Oncologic (Cancer) History: Reports: None Dermatologic History: Reports: None - Infectious Disease History Infectious Disease History: Reports: Chicken Pox, Measles, Mumps - Past Surgical History Head Surgeries/Procedures: Reports: None HEENT Surgical History: Reports: None Cardiovascular Surgical History: Reports: None Respiratory Surgical History: Reports: None GI Surgical History: Reports: None Female Surgical History: Reports: Other (See Below) Other Female Surgeries/Procedures: diagnostic laparoscopy Endocrine Surgical History: Reports: None Neurological Surgical History: Reports: None Musculoskeletal Surgical History: Reports: Other (See Below) Other Musculoskeletal Surgeries/Procedures:: 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 ED EXAM, GENERAL - Physical Exam Exam: See Below (see dictation) Course - Vital Signs Last Recorded V/S: Last Vital Signs Temp 97.2 F 12/19/20 12:38 Pulse 72 12/19/20 14:26 Resp 17 12/19/20 12:38 BP 112/71 12/19/20 14:26 Pulse Ox 98 12/19/20 14:26 Orthostatic Blood Pressure [ 118/79 Standing] Orthostatic Blood Pressure [ 120/75 Sitting] Orthostatic Blood Pressure [ 119/69 Supine] - Orders/Labs/Meds Orders: Active Orders 24 hr Category Date Time Status Saline Lock Insert [OM.PC] Stat Oth 12/19/20 10:28 Ordered Labs: Laboratory Tests 12/19/20 12/19/20 12/19/20 Range/Units 10:18 10:18 10:18 WBC 9.02 (4.0-11.0) K/uL RBC 4.65 (4.30-5.90) M/uL Hgb 14.8 (12.0-16.0) g/dL Hct 44.0 (36.0-46.0) % MCV 94.6 (80.0-98.0) fL MCH 31.8 (27.0-32.0) pg MCHC 33.6 (31.0-37.0) g/dL RDW Std Deviation 43.6 (28.0-62.0) fl RDW Coeff of Omer 13 (11.0-15.0) % Plt Count 312 (150-400) K/uL MPV 9.50 (7.40-12.00) fL Neut % (Auto) 58.7 (48.0-80.0) % Lymph % (Auto) 30.6 (16.0-40.0) % Carroll % (Auto) 9.1 (0.0-15.0) % Eos % (Auto) 1.4 (0.0-7.0) % Baso % (Auto) 0.2 (0.0-1.5) % Neut # (Auto) 5.3 (1.4-5.7) K/uL Lymph # (Auto) 2.8 H (0.6-2.4) K/uL Carroll # (Auto) 0.8 (0.0-0.8) K/uL Eos # (Auto) 0.1 (0.0-0.7) K/uL Baso # (Auto) 0.0 (0.0-0.1) K/uL Nucleated RBC % 0.0 /100WBC Nucleated RBCs # 0 K/uL Sodium 136 (136-145) mmol/L Potassium 3.8 (3.5-5.1) mmol/L Chloride 102 (98-107) mmol/L Carbon Dioxide 22.5 (21.0-32.0) mmol/L BUN 8 (7.0-18.0) mg/dL Creatinine 0.9 (0.6-1.0) mg/dL Est Cr Clr Drug Dosing 82.14 mL/min Estimated GFR (MDRD) > 60.0 ml/min Glucose 103 (74-106) mg/dL Calcium 8.9 (8.5-10.1) mg/dL Total Bilirubin 1.4 H (0.2-1.0) mg/dL AST 33 (15-37) IU/L ALT 53 (14-63) IU/L Alkaline Phosphatase 70 (46-116) U/L Troponin I < 0.050 (0.000-0.056) ng/mL Total Protein 8.1 (6.4-8.2) g/dL Albumin 4.0 (3.4-5.0) g/dL Globulin 4.1 H (2.6-4.0) g/dL Albumin/Globulin Ratio 1.0 (0.9-1.6) Lipase (73-393) U/L HCG, Qual NEGATIVE (NEG) 12/19/20 12/19/20 Range/Units 10:18 13:20 WBC (4.0-11.0) K/uL RBC (4.30-5.90) M/uL Hgb (12.0-16.0) g/dL Hct (36.0-46.0) % MCV (80.0-98.0) fL MCH (27.0-32.0) pg MCHC (31.0-37.0) g/dL RDW Std Deviation (28.0-62.0) fl RDW Coeff of Omer (11.0-15.0) % Plt Count (150-400) K/uL MPV (7.40-12.00) fL Neut % (Auto) (48.0-80.0) % Lymph % (Auto) (16.0-40.0) % Carroll % (Auto) (0.0-15.0) % Eos % (Auto) (0.0-7.0) % Baso % (Auto) (0.0-1.5) % Neut # (Auto) (1.4-5.7) K/uL Lymph # (Auto) (0.6-2.4) K/uL Carroll # (Auto) (0.0-0.8) K/uL Eos # (Auto) (0.0-0.7) K/uL Baso # (Auto) (0.0-0.1) K/uL Nucleated RBC % /100WBC Nucleated RBCs # K/uL Sodium (136-145) mmol/L Potassium (3.5-5.1) mmol/L Chloride (98-107) mmol/L Carbon Dioxide (21.0-32.0) mmol/L BUN (7.0-18.0) mg/dL Creatinine (0.6-1.0) mg/dL Est Cr Clr Drug Dosing mL/min Estimated GFR (MDRD) ml/min Glucose (74-106) mg/dL Calcium (8.5-10.1) mg/dL Total Bilirubin (0.2-1.0) mg/dL AST (15-37) IU/L ALT (14-63) IU/L Alkaline Phosphatase (46-116) U/L Troponin I < 0.050 (0.000-0.056) ng/mL Total Protein (6.4-8.2) g/dL Albumin (3.4-5.0) g/dL Globulin (2.6-4.0) g/dL Albumin/Globulin Ratio (0.9-1.6) Lipase 85 (73-393) U/L HCG, Qual (NEG) Meds: Medications Discontinued Medications Generic Name Dose Route Start Last Admin Trade Name Freq PRN Reason Stop Dose Admin Aspirin 324 mg 12/19/20 10:28 12/19/20 10:32 Aspirin 81 Mg Tab.Chew PO 12/19/20 10:29 324 mg ONETIME ONE Administration Sodium Chloride 1,000 mls @ 999 mls/hr 12/19/20 10:28 12/19/20 10:32 Normal Saline IV 12/19/20 11:28 999 mls/hr BOLUS ONE Administration Sodium Chloride 10 ml 12/19/20 10:28 12/19/20 10:32 Sodium Chloride 0.9% 10 Ml Syringe FLUSH 10 ml ASDIRECTED PRN Administration Keep Vein Open Sodium Chloride 2.5 ml 12/19/20 10:28 12/19/20 10:32 Sodium Chloride 0.9% 2.5 Ml Syringe FLUSH 2.5 ml ASDIRECTED PRN Administration Keep Vein Open Departure - Departure Time of Disposition: 14:09 Disposition: Home, Self-Care 01 Clinical Impression: Atypical chest pain - Discharge Information Instructions: Nonspecific Chest Pain, Adult Referrals: PCP,None [Primary Care Provider] - Forms: ED Department Discharge Additional Instructions: The following information is given to patients seen in the emergency department who are being discharged to home. This information is to outline your options for follow-up care. We provide all patients seen in our emergency department with a follow-up referral. The need for follow-up, as well as the timing and circumstances, are variable depending upon the specifics of your emergency department visit. If you don't have a primary care physician on staff, we will provide you with a referral. We always advise you to contact your personal physician following an emergency department visit to inform them of the circumstance of the visit and for follow-up with them and/or the need for any referrals to a consulting specialist. The emergency department will also refer you to a specialist when appropriate. This referral assures that you have the opportunity for follow-up care with a specialist. All of these measure are taken in an effort to provide you with optimal care, which includes your follow-up. Under all circumstances we always encourage you to contact your private physician who remains a resource for coordinating your care. When calling for follow-up care, please make the office aware that this follow-up is from your recent emergency room visit. If for any reason you are refused follow-up, please contact the [facility] Emergency Department at and asked to speak to the emergency department charge nurse. [facility] Primary Care / Cardiology [address] [place] [id number] [facility] [address] [place] [address] 1. You can alternate ibuprofen and Tylenol as directed for pain and discomfort. 2. Follow-up with your primary care provider and the basket patcher as discussed. Return to the ED as needed and as discussed. Sepsis Event Note (ED) - Evaluation Sepsis Screening Result: No Definite Risk - Focused Exam Vital Signs: Vital Signs Temp Pulse Resp BP Pulse Ox 12/19/20 14:26 72 112/71 98 12/19/20 12:38 97.2 F 84 17 114/68 98 12/19/20 11:14 81 16 110/75 99 12/19/20 10:23 98.6 F 80 18 113/80 97 - My Orders Last 24 Hours: My Active Orders 12/19/20 10:28 Saline Lock Insert [OM.PC] Stat - Assessment/Plan Last 24 Hours: My Active Orders 12/19/20 10:28 Saline Lock Insert [OM.PC] Stat
[2020-12-19 11:08] LABS: BLOOD UREA NITROGEN,BUN 8 mg/dL (7.0-18.0); CARBON DIOXIDE,CO2 22.5 mmol/L (21.0-32.0); CHLORIDE,CL 102 mmol/L (98-107); GLUCOSE RANDOM 103 mg/dL (74-106); POTASSIUM,K 3.8 mmol/L (3.5-5.1); SODIUM,NA 136 mmol/L (136-145)
--- NOTE | 2020-12-19 11:26 | CR ---
INDICATION: Chest pain TECHNIQUE: Chest 1 views COMPARISON: 08/18/2020 FINDINGS: Cardiovascular and mediastinum: Heart size and vasculature are normal in caliber and appearance. Lungs and pleural spaces: Lungs are clear. No sign of infiltrate or mass. No sign of pleural effusion. No pneumothorax. Bones and soft tissues: No significant findings. A battery pack is in the left chest wall. IMPRESSION: No acute findings and no significant changes from the prior exam. Dictated by Jose Figueroa MD @ Dec 19 2020 11:23AM Signed by Dr. Jose Figueroa @ Dec 19 2020 11:24AM
--- NOTE | 2020-12-19 11:59 | US ---
INDICATION: Elevated bilirubin. TECHNIQUE: Ultrasound abdomen limited. Sonographic images of the right upper quadrant were obtained using vega-scale and color Doppler images. COMPARISON: None FINDINGS: Liver: Normal in size and echotexture. No masses. No intrahepatic biliary dilatation. Gallbladder: No stones or sludge. Normal wall thickness. No pericholecystic fluid. Common bile duct: 6 mm. Pancreas: Normal. Right kidney: Normal in size. Normal echotexture and cortex. No suspicious masses, stones, or hydronephrosis. IMPRESSION: Unremarkable right upper quadrant ultrasound. No sign of biliary dilatation or other explanation for elevated bilirubin. Dictated by Jose Figueroa MD @ Dec 19 2020 11:56AM Signed by Dr. Jose Figueroa @ Dec 19 2020 11:59AM
[2020-12-19 14:38] VITALS: BP 112/71; PULSE 72
== END 2020-12-19 14:27 | disposition home or self-care (01) ==
LOC: MW.ED 10:12
DX: R07.89 Other chest pain (principal); Z88.5 Allergy status to narcotic agent; Z79.899 Other long term (current) drug therapy; Z72.0 Tobacco use
CPT/HCPCS: 36415; 71045; 76705; 80053; 83690; 84484; 84703; 85025; 93005; 99285; A9270; J7030; 93010; 99284

== ENCOUNTER 2023-01-13 21:29 | Emergency (ER) | payer BC ==
[2023-01-13] MEDS ORDERED: Sodium Chloride 0.9% 1,000 ML IV ONE (22:01)
[2023-01-13] MEDS ORDERED: Sodium Chloride 0.9% 10 ML Syringe FLUSH PRN (22:01)
[2023-01-13] MEDS ORDERED: Ketorolac 30 MG/ML SDV IVPUSH ONE (22:01)
[2023-01-13] MEDS ORDERED: Sodium Chloride 0.9% 2.5 ML Syringe FLUSH PRN (22:01)
[2023-01-13 22:30] LABS: BASOPHILS PERCENT AUTO 0.3 % (0.0-1.5); EOSINOPHILS ABSOLUTE AUTO 0.3 K/uL (0.0-0.7); EOSINOPHILS PERCENT AUTO 2.6 % (0.0-7.0); HEMATOCRIT 37.5 % (36.0-46.0); LYMPHOCYTES ABSOLUTE AUTO 3.5 K/uL (0.6-2.4); LYMPHOCYTES PERCENT AUTO 36.5 % (16.0-40.0); MEAN CORPUSCULAR HEMOGLOBIN 31.9 pg (27.0-32.0); MEAN CORPUSCULAR HGB CONC 34.7 g/dL (31.0-37.0); MEAN CORPUSCULAR VOLUME 92.1 fL (80.0-98.0); MONOCYTES ABSOLUTE AUTO 0.7 K/uL (0.0-0.8); MONOCYTES PERCENT AUTO 7.3 % (0.0-15.0); NEUTROPHILS ABSOLUTE AUTO 5.1 K/uL (1.4-5.7); NEUTROPHILS PERCENT AUTO 53.3 % (48.0-80.0); NRBC ABSOLUTE 0 K/uL; PLATELET COUNT,PLT 279 K/uL (150-400); RED BLOOD CELL COUNT 4.07 M/uL (4.30-5.90); WHITE BLOOD CELL COUNT,WBC 9.54 K/uL (4.0-11.0)
[2023-01-13 22:45] LABS: APPEARANCE,URINE CLEAR; BILIRUBIN,URINE NEGATIVE (NEGATIVE); COLOR,URINE YELLOW; GLUCOSE,URINE NEGATIVE (NEGATIVE); KETONES,URINE NEGATIVE (NEGATIVE); LEUKOCYTE ESTERASE,URINE NEGATIVE (NEGATIVE); NITRITE,URINE NEGATIVE (NEGATIVE); OCCULT BLOOD,URINE NEGATIVE (NEGATIVE); PROTEIN,URINE NEGATIVE (NEGATIVE); UROBILINOGEN,URINE 0.2 EU/dL (<2.0)
[2023-01-13 22:58] LABS: A/G RATIO 0.9 (0.9-1.6); ALBUMIN 3.2 g/dL (3.4-5.0); BILIRUBIN TOTAL 0.6 mg/dL (0.2-1.0); CALCIUM 8.4 mg/dL (8.5-10.1); CARBON DIOXIDE,CO2 25.5 mmol/L (21.0-32.0); CREATININE 0.6 mg/dL (0.6-1.0); EST CRCL DRUG DOSING (CG) 120.7 mL/min; POTASSIUM,K 3.7 mmol/L (3.5-5.1); PROTEIN TOTAL,TP 6.6 g/dL (6.4-8.2)
[2023-01-14 00:26] VITALS: PULSE 67
[2023-01-14 00:52] VITALS: BP 97/61
== END 2023-01-14 00:50 | disposition home or self-care (01) ==
LOC: MW.ED 21:29
DX: E86.0 Dehydration (principal); I95.9 Hypotension, unspecified; E03.9 Hypothyroidism, unspecified; Z72.0 Tobacco use; Z88.5 Allergy status to narcotic agent; Z79.899 Other long term (current) drug therapy
CPT/HCPCS: 36415; 70450; 80053; 81003; 84703; 85025; 96361; 96374; 99284; J1885; J3490; J7030; 93010